=== PATIENT | female | born 1970 | race Caucasian/White ===

== ENCOUNTER 2018-10-15 03:51 | Inpatient (IN) ==
[2018-10-15] MEDS ORDERED: Acetaminophen 325 MG Tablet PO PRN (05:35)
[2018-10-15] MEDS ORDERED: Aluminum/Magnesium/Simethacone Susp 30 ML UDC PO PRN (05:35)
[2018-10-15] MEDS ORDERED: LORazepam 1 MG Tablet PO PRN (05:35)
--- NOTE | 2018-10-15 16:09 | P.HPPSY ---
Provisional Diagnosis Admission Date: October 15, 2018 04:42 Eva I.: Psychotic disorder brief Competence Certification of Person's Competence To Provide Express and Informed Consent I have personally examined Gretta Power, a person being served at [facility] on, October 15, 2018 1600. Express and informed consent means consent voluntarily given in writing, by a competent person, after sufficient explanation and disclosure of the subject matter involved to enable the person to make a knowing and willful decision without any element of force, fraud, deceit, duress, or other form of constraint or coercion. This person is 18 years of age or older, is not now known to be incompetent to consent to treatment with a guardian advocate, and does not have a health care surrogate or proxy currently making medical treatment decisions. I have found this person to be one of the following: [] Competent to provide express and informed consent, as defined above, for voluntary admission to this facility and is competent to provide express and informed consent for treatment. He/she has the consistent capacity to make well reasoned, willful, and knowing decisions concerning his or her medical or mental health treatment. The person fully and consistently understands the purpose of the admission for examination/placement and is fully capable of personally exercising all rights assured under [place]xxx] Incompetent to provide express and informed consent to voluntary admission , and this is incompetent to provide express and informed consent to treatment. The person must be transferred to involuntary status and a petition for a guardian advocate filed with the Circuit Court. [] Refusing to provide express and informed consent to voluntary admission but is competent to provide express and informed consent for treatment. The person must be discharged or transferred to involuntary status. Form shall be completed within 24 hours of a person's arrival at the receiving facility and filed in the clinical record of each person: 1. Admitted on a voluntary basis 2. Permitted to provide express and informed consent to his/her own treatment 3. Allowed to transfer from involuntary to voluntary status 4. Prior to permitting a person to consent to his or her own treatment after having been previously found incompetent to consent to treatment. History of Present Illness Capacity: Lacks capacity History of Present Illness: Patient is a 48-year-old white female who comes to under Jordan act Sieben illegible signature from [facility] dated 10/14/2018 and 9 PM stating auditory hallucinations manic behavior history of drug use. Patient is history in the emergency department urine tox positive for benzodiazepines and marijuana. It appears patient may have had a UTI diagnosed and is treated with Rocephin we will recheck her urine here patient transported here after being medically cleared. Patient seen in the exam room with nurse Dee Dee patient's ex- whom she is living with and her 23-year-old son. Patient acknowledges auditory hallucinations of a command nature patient is showing marked significant thought blocking significantly delayed responses very distracted responses are very brief and whispered. She is is able to acknowledge that the voices are of a command nature telling her not to respond to me. She is vague about suicidality she is vague about homicidality. There is a vague history of past mental health issues a number of years ago though she denies any prior inpatient psychiatric hospitalization. It appears there is been some history of alcohol abuse in the past and perhaps some experimentation with drugs including cocaine and possibly methamphetamine. Patient is vague about any prior physical or sexual abuse. She denies mental health issues with her family of origin. The. She has a college degree. I am not certain about her work history. At this time patient meets criteria for involuntary psychiatric hospitalization of the Jordan act on the first opinion request second opinion. A few she does not have capacity thus I will ask for healthcare surrogate and guardian advocate. Patient's son is willing to be a healthcare surrogate. We will start patient on Lexapro 10 mg daily and Risperdal 0.5 mg twice daily. Health has been fairly short stay. - Inpatient Certification I certify that the inpatient services were ordered in accordance with Medicare regulations governing the order. This includes certification that hospital inpatient services are reasonable and necessary and in the case of services not specified as inpatient-only under 42 CFR 419.22(n), that they are appropriately provided as inpatient services in accordance to with the 2-midnight benchmark under 43 CFR 412.3(e) I certify that inpatient psychiatric hospital services are medically necessary. Evaluation and treatment and/or diagnostic testing are expected to improve the patient's condition. The patient needs on a daily basis, active treatment furnished directly by or requiring the supervision of inpatient psychiatric facility personnel. Estimated Total Length of Stay (Days): 5 Plans for Post Hospital Care: Home Review of Systems All other systems reviewed negative except as stated in HPI PMFSH - History History Provided By: Family Member - Social History I have reviewed the patient's Social History: Yes - Substance Use History Substance History: Active Abuse - Substance Use Type Alcohol Status: Early Remission Route Used: By Mouth Frequency: Daily, few drinks Last Used: 3-4 weeks ago Reason for Use: Peer Pressure Comment: Per patien's son patient used alcohol daily since she was in college, he was unsure of the amount and she recently had ceased using ETOH and had DT' s a few weeks ago. Patient may have used synthetics per son. Quality Measures - Psychiatric History Psychological trauma history: Patient denies at this time she seems somewhat dubious about her recent Violence risk to others in the last 6 months: Low to moderate Violence risk to self in the last 6 months: Low to moderate - Substance Abuse History Drug or alcohol use in the past 12 months: Some history of alcohol and marijuana cocaine and amphetamine - Patient Strengths Patient's strengths (minimum of 2): Patient has supportive family and she is cooperative Medications and Allergies Active Medications: Active Medications Acetaminophen (Tylenol) 650 mg PO Q4H PRN PRN Reason: Pain 1-5 or Temp >101F Al Hydrox/Mg Hydrox/Simethicone (Mag-Al Plus Susp Liq) 30 ml PO Q6H PRN PRN Reason: DYSPEPSIA Al Hydroxide/Mg Hydroxide (Milk Of Magnesia Liq) 30 ml PO Q12H PRN PRN Reason: MILD CONSTIPATION Al Hydroxide/Mg Hydroxide (Milk Of Magnesia Liq) 30 ml PO DAILY PRN PRN Reason: CONSTIPATION Diphenhydramine HCl (Benadryl) 50 mg PO HS PRN PRN Reason: INSOMNIA Escitalopram Oxalate (Lexapro) 10 mg PO DAILY [facility] Hydroxyzine HCl (Atarax) 50 mg PO Q6H PRN PRN Reason: ANXIETY Nicotine (Habitrol 21 Mg Patch.24 Hr) 1 patch T-DERMAL DAILY [facility] Last Admin: 10/15/18 09:01 Dose: Not Given Patch Removal (Remove Old Patch) 1 each T-DERMAL HS [facility] Risperidone (Risperdal) 0.5 mg PO BID [facility] Allergies Allergy/AdvReac Type Severity Reaction Status Date / Time No Known Allergies Allergy Verified 10/15/18 05:13 Exam Vital signs: Vital Signs 10/15/18 04:40 Temperature 97.1 F L Pulse Rate 64 Blood Pressure 139/74 Intake & Output 10/14/18 10/15/18 10/15/18 18:59 06:59 18:59 Weight 66.1 kg Other: Weight On Admission 66.1 kg Narrative: Patient sitting quietly in the exam room she is in no acute distress, patient no respiratory distress, no complaints of chest pain or abdominal pain. Patient moving all 4 extremities without difficulty Mental Status Examination Appearance: Disheveled Consciousness: Alert, Clouded Orientation: Person, Place, Date/Time Motor Activity: Normal gait, Other (Somewhat slow pace) Speech: Hesitant, Slow Language: Adequate Fund of Knowledge: Inadequate Attention and Concentration: Adequate (Poor) Memory: Unremarkable (Poor) Mood: Sad Affect: Other (Marked decreased range and intensity) Thought Process & Associations: Linear Thought Content: Hallucinations Hallucination Type: Auditory Delusion Type: None Suicidal Ideation: Yes (Vague) Suicidal Plan: Yes (Denies) Suicidal Intention: Yes (The) Homicidal Ideation: No Homicidal Plan: No Homicidal Intention: No Insight: Poor Judgment: Poor Assessment and Plan - Assessment (1) Brief psychotic disorder Code(s): F23 - Brief psychotic disorder Status: Acute - Plan Plan: Estimated LOS: [] days At this time patient meets criteria for further involuntary psychiatric hospitalization of the Jordan act older first opinion request second opinion, I feel she does not have capacity will ask healthcare surrogate and guardian advocate we will start patient on Lexapro and Risperdal patient's son to be his healthcare surrogate Justification for Continued Inpatient Stay: At this time patient with decompensated placed in a lower level of care Discharge Planning: Probable return home with family Request Healthcare Surrogate/Guardian Advocate?: Yes
[2018-10-15] MEDS: Escitalopram 10 MG Tablet PO SCH (16:49)
[2018-10-16] MEDS: Escitalopram 10 MG Tablet PO SCH (08:28)
[2018-10-16 08:46] LABS: Baso % (Auto) 0.7 % (0.0-2.0); Eos # (Auto) 0.1 th/mm3 (0.0-0.4); Eos % (Auto) 1.6 % (0.0-4.0); Hematocrit 36.5 % (35.0-46.0); Lymph # (Auto) 1.1 th/mm3 (1.0-4.8); Lymph % (Auto) 21.8 % (9.0-44.0); Mean Corpuscular HGB Conc 32.8 % (32.0-36.0); Mean Corpuscular Volume 88.4 fL (80.0-100.0); Mean Platelet Volume 8.9 fL (7.0-11.0); Mono # (Auto) 0.6 th/mm3 (0.0-0.9); Mono % (Auto) 11.1 % (0.0-8.0); Neut # (Auto) 3.3 th/mm3 (1.8-7.7); Neut % (Auto) 64.8 % (16.0-70.0); Platelet Count 199 th/mm3 (150-450); Red Blood Count 4.13 mil/mm3 (4.00-5.30); Red Cell Distribution Width 15.7 % (11.6-17.2)
[2018-10-16 09:17] LABS: Calcium 8.7 mg/dL (8.5-10.1); Carbon Dioxide 26.9 meq/L (21.0-32.0); Potassium 3.7 meq/L (3.5-5.1)
--- NOTE | 2018-10-16 11:50 | P.CONIM ---
History of Present Illness Service: Hospitalist Consult date: 10/16/18 Requesting Physician: Danny Dolan Reason for Consult: Assist with medical management Primary Care Provider: UNKNOWN History of Present Illness: This is a 48-year-old female with a past medical history significant for polysubstance abuse including alcohol, benzodiazepines and marijuana with questionable cocaine and methamphetamine use who was admitted to [facility] inpatient psychiatric unit under Jordan act from [facility]. Hospitalist services have been consulted to assist with medical management specifically treatment of possible urinary tract infection. At the previous facility patient had a urinalysis completed on 10/14/2018 which was significant for 2+ leukocytes, 4 white blood cells, moderate oxalate crystals with culture indicated. Patient was treated with IV Rocephin. Patient seen and examined. She is not a good historian. Patient appears distracted and perhaps internally preoccupied. She says she has intermittent "sensations" that run up one side of her body and make her "lock up ". She does not provide more specifics despite questioning. Per review of medical records, patient was daily alcohol user but quit a few weeks ago and went thru DTs. She denies any complaints of fever or chills. She denies any chest pain or shortness of breath. She denies any nausea or vomiting. She states she has intermittent left-sided abdominal pain for the past several months but she is unable to give any specifics. She denies any dysuria or hematuria. She denies any current constipation or diarrhea. She states she used to have issues with diarrhea and dark black stools but that resolved when she quit drinking daily alcohol about a month ago. UA has been ordered by the primary team but is not been completed. Patient's CBC and CMP are unremarkable. Review of Systems Review of Systems: all other systems reviewed are negative PMFSH Medical History Medical History Alcohol abuse (Acute) Polysubstance abuse (Acute) Surgical History Surgical History History of dilation and curettage (Acute) Social History Social History Substance History: Active Abuse Substance Abuse Detail Alcohol: Substance Use Status: Early Remission Route Used Substance Abuse: By Mouth Substance Frequency: Daily, few drinks Last Used: 3-4 weeks ago Substance Abuse Comment: Per patien's son patient used alcohol daily since she was in college, he was unsure of the amount and she recently had ceased using ETOH and had DT's a few weeks ago. Patient may have used synthetics per son. Reason for Use: Peer Pressure Medications and Allergies Allergies Allergy/AdvReac Type Severity Reaction Status Date / Time No Known Allergies Allergy Verified 10/15/18 05:13 Active Medications: Active Medications Acetaminophen (Tylenol) 650 mg PO Q4H PRN PRN Reason: Pain 1-5 or Temp >101F Al Hydrox/Mg Hydrox/Simethicone (Mag-Al Plus Susp Liq) 30 ml PO Q6H PRN PRN Reason: DYSPEPSIA Al Hydroxide/Mg Hydroxide (Milk Of Magnesia Liq) 30 ml PO Q12H PRN PRN Reason: MILD CONSTIPATION Diphenhydramine HCl (Benadryl) 50 mg PO HS PRN PRN Reason: INSOMNIA Escitalopram Oxalate (Lexapro) 10 mg PO DAILY [facility] Last Admin: 10/16/18 08:28 Dose: 10 mg Hydroxyzine HCl (Atarax) 50 mg PO Q6H PRN PRN Reason: ANXIETY Last Admin: 10/15/18 22:39 Dose: 50 mg Nicotine (Habitrol 21 Mg Patch.24 Hr) 1 patch T-DERMAL DAILY [facility] Last Admin: 10/16/18 08:34 Dose: Not Given Patch Removal (Remove Old Patch) 1 each T-DERMAL HS [facility] Last Admin: 10/15/18 22:05 Dose: Not Given Risperidone (Risperdal) 0.5 mg PO BID [facility] Last Admin: 10/16/18 08:28 Dose: 0.5 mg Physical Exam Vital signs: Last Vital Signs Temp 98.6 F 10/16/18 06:00 Pulse 90 10/16/18 06:00 Resp 18 10/16/18 06:00 BP 126/71 10/16/18 06:00 Pulse Ox 96 10/16/18 06:00 Intake & Output 10/14/18 10/15/18 10/16/18 10/17/18 06:59 06:59 06:59 06:59 Weight 66.1 kg Narrative: GENERAL: WDWN middle aged female patient, appears unkempt/ disheveled. INAD. Awake and alert. Distracted. SKIN: Warm and dry. No obvious rash. +small cut on lower lip, does not appear infected. HEAD: Atraumatic. Normocephalic. EYES: Pupils equal and round. No scleral icterus. No injection or drainage. ENT: No nasal bleeding or discharge. Mucous membranes pink and moist. NECK: Trachea midline. CARDIOVASCULAR: Regular rate and rhythm. No murmur auscultated. RESPIRATORY: No accessory muscle use. Clear to auscultation. Breath sounds equal bilaterally. GASTROINTESTINAL: Abdomen soft, non-tender, nondistended. +BS. MUSCULOSKELETAL: Extremities without clubbing, cyanosis, or edema. No obvious deformities. NEUROLOGICAL: Awake and alert. No obvious cranial nerve deficits. Motor grossly within normal limits. Able to move all extremities spontaneously. Slow vague responses. PSYCHIATRIC: Flat affect. Distracted. Insight and judgement poor. Results Labs CBC & Chem 7: 10/16/18 07:35 10/16/18 07:35 Assessment and Plan (1) Brief psychotic disorder: Code(s): F23 - Brief psychotic disorder Status: Acute Plan 28-year-old female with a past medical history of polysubstance abuse including alcohol, benzodiazepines and marijuana admitted to inpatient psychiatric unit with acute psychosis. Hospitalist service is consulted to assist with medical management. Acute psychosis, likely due to polysubstance use/abuse Polysubstance abuse Hx of alcohol abuse UDS + benzodiazepines and marijuana TSH 5.620 -Management per psychiatric team -seizure precautions -obtain RPR, B12 and Thiamine level -check CT head UTI Reviewed urinalysis from outside facility 10/14/18 + leukocytes, 4 white blood cells, moderate oxalate crystals, culture indicated patient treated with IV Ceftriaxone -repeat UA ordered/pending -start on po Cipro 500mg BID for now pending repeat UA results Episodes of "sensation on one side of her body and locking up" concern for seizure activity -obtain EEG -monitor for seizure activity Intermittent abdominal pain patient denies any complaints of abdominal pain at this time. Suspect related to alcohol abuse -CMP unremarkable -order Beta HCG -monitor DVT prophylaxis -patient is ambulatory Thank you for this consultation. We will follow patient along with you.
--- NOTE | 2018-10-16 13:06 | P.CONPSY ---
Provisional Diagnosis Admission Date: October 15, 2018 04:42 Rugby I.: Psychotic disorder brief History of Present Illness Service: Psychiatry Consult date: 10/16/18 Requesting Physician: Danny Dolan Reason for Consult: 2nd Opinion Primary Care Provider: UNKNOWN History of Present Illness: Pt seen and discussed with staff. Chart reviewed. Pt was admitted under a BA due to AH and psychotic behavior. Tox screen positive for benzos. Hx of cocaine and methamphetamine abuse. She ahs been thought blocking and responding to internal stimuli. She is paranoid about medications and suspicious of nursing staff. She has been selectively mute and refusing to communicate with staff at times. Appetite has been poor but staff have been able to coax her to eat some of meals. Thought process is notable for loose associations. No aggression or agitation. PMFSH - History History Provided By: Family Member - Medical History Medical History: Medical History (Last Reviewed 10/16/18 @ 18:55 by Anai Castillo MD) Alcohol abuse Polysubstance abuse - Surgical History Surgical History: Surgical History (Last Reviewed 10/16/18 @ 18:55 by Anai Castillo MD) History of dilation and curettage - Substance Use History Substance History: Active Abuse - Substance Use Type Alcohol Status: Early Remission Route Used: By Mouth Frequency: Daily, few drinks Last Used: 3-4 weeks ago Reason for Use: Peer Pressure Comment: Per patien's son patient used alcohol daily since she was in college, he was unsure of the amount and she recently had ceased using ETOH and had DT' s a few weeks ago. Patient may have used synthetics per son. Medications and Allergies Active Medications: Active Medications Acetaminophen (Tylenol) 650 mg PO Q4H PRN PRN Reason: Pain 1-5 or Temp >101F Al Hydrox/Mg Hydrox/Simethicone (Mag-Al Plus Susp Liq) 30 ml PO Q6H PRN PRN Reason: DYSPEPSIA Al Hydroxide/Mg Hydroxide (Milk Of Magnesia Liq) 30 ml PO Q12H PRN PRN Reason: MILD CONSTIPATION Ciprofloxacin HCl (Cipro) 500 mg PO Q12H [facility] Diphenhydramine HCl (Benadryl) 50 mg PO HS PRN PRN Reason: INSOMNIA Escitalopram Oxalate (Lexapro) 10 mg PO DAILY [facility] Last Admin: 10/16/18 08:28 Dose: 10 mg Hydroxyzine HCl (Atarax) 50 mg PO Q6H PRN PRN Reason: ANXIETY Last Admin: 10/15/18 22:39 Dose: 50 mg Nicotine (Habitrol 21 Mg Patch.24 Hr) 1 patch T-DERMAL DAILY [facility] Last Admin: 10/16/18 08:34 Dose: Not Given Patch Removal (Remove Old Patch) 1 each T-DERMAL HS [facility] Last Admin: 10/15/18 22:05 Dose: Not Given Risperidone (Risperdal) 0.5 mg PO BID [facility] Last Admin: 10/16/18 08:28 Dose: 0.5 mg Allergies Allergy/AdvReac Type Severity Reaction Status Date / Time No Known Allergies Allergy Verified 10/15/18 05:13 Exam Vital signs: Vital Signs 10/16/18 06:00 Temperature 98.6 F Pulse Rate 90 Respiratory Rate 18 Blood Pressure 126/71 Pulse Oximetry 96 Mental Status Examination Appearance: Disheveled Consciousness: Alert, Clouded Orientation: Person, Place, Date/Time Motor Activity: Normal gait, Other (Somewhat slow pace) Speech: Hesitant, Slow Language: Adequate Fund of Knowledge: Inadequate Attention and Concentration: Easily distracted Memory: Impaired Mood: Sad Affect: Blunt Thought Process & Associations: Disorganized Thought Content: Bizarre thinking, Hallucinations Hallucination Type: Auditory Delusion Type: Bizarre, Paranoid Suicidal Ideation: Yes (Vague) Suicidal Plan: No (Denies) Suicidal Intention: No Homicidal Ideation: No Homicidal Plan: No Homicidal Intention: No Insight: Poor Judgment: Poor Assessment and Plan - Assessment (1) Brief psychotic disorder Code(s): F23 - Brief psychotic disorder Status: Acute - Plan Plan: Estimated LOS: [] days Pt meets criteria for involuntary hospitalization. 2nd opinion completed. Ordered CIWA due to hx of benzo abuse. Justification for Continued Inpatient Stay: psychosis Request Healthcare Surrogate/Guardian Advocate?: Yes
[2018-10-16] MEDS: Ciprofloxacin 500 MG Tablet PO SCH (13:07)
[2018-10-16 14:23] LABS: Vitamin B12 328 pg/mL (193-986)
[2018-10-16] MEDS ORDERED: LORazepam 1 MG Tablet PO PRN (19:03)
--- NOTE | 2018-10-16 21:10 | CT ---
EXAM DATE: 10/16/2018 8:39 PM EST AGE/SEX: 48 years / Female INDICATIONS: Altered mental status. CLINICAL DATA: This is the patient's initial encounter. Patient reports that signs and symptoms have been present for 1 day and indicates a pain score of Nonresponsive. MEDICAL/SURGICAL HISTORY: None. None. RADIATION DOSE: 34.62 CTDI (mGy) COMPARISON: No prior exams available for comparison. TECHNIQUE: CT of the head without contrast. Using automated exposure control and adjustment of the mA and/or kV according to patient size, radiation dose was kept as low as reasonably achievable to ob tain optimal diagnostic quality images. DICOM format image data is available electronically for revi ew and comparison. FINDINGS: Cerebrum: The ventricles are normal. No midline shift, mass lesion, hemorrhage or acute infarction. No extraaxial fluid collections are seen. Posterior Fossa: The cerebellum and brainstem demonstrate no acute abnormality. The 4th ventricle is midline. The cerebellopontine angle is within normal limits. Extracranial: The visualized sinuses are clear. Skull: The calvaria is intact. No skull fracture. CONCLUSION: No acute intracranial abnormality is identified. . Electronically signed by: Danny Sherwood MD 10/16/2018 9:09 PM EST
[2018-10-17] MEDS: Ciprofloxacin 500 MG Tablet PO SCH ×3 (00:46→12:16)
[2018-10-17] MEDS: Escitalopram 10 MG Tablet PO SCH (08:15)
--- NOTE | 2018-10-17 12:14 | P.PNPSY ---
Subjective Remarks: Patient seen and mckeon with nurse Dee Dee, chart reviewed, patient showing mixed complaints medication. Patient also continues confused disorganized with significant thought blocking distractibility. She refused a thiamine injection today and also refused EEG I discussed this with her also supporting her position for her cooperation stating her son and ex- are supporters of her cooperating with us. She agreed to it. We will hopefully she will now cooperate. Review of Systems All other systems reviewed negative except as stated in HPI Mental Status Examination Appearance: Appropriate Consciousness: Alert, Highly distractible Orientation: Person, Place, Date/Time Motor Activity: Normal gait Speech: Hesitant, Slow Language: Adequate Fund of Knowledge: Inadequate Attention and Concentration: Easily distracted Memory: Impaired Mood: Sad Affect: Other (Slight decreased range and intensity) Thought Process & Associations: Disorganized Thought Content: Bizarre thinking, Hallucinations Hallucination Type: Auditory Delusion Type: Bizarre, Paranoid Suicidal Ideation: Yes (Vague) Suicidal Plan: No (Denies) Suicidal Intention: No Homicidal Ideation: No Homicidal Plan: No Homicidal Intention: No Insight: Poor Judgment: Poor Assessment and Plan - Assessment (1) Brief psychotic disorder Code(s): F23 - Brief psychotic disorder Status: Acute - Plan Plan: Patient remains psychotic and somewhat depressed. Showing reluctance to cooperate with medication treatment and procedures. Continue to work with patient's family related to this with the son being the healthcare surrogate Justification for Continued Inpatient Stay: At this time patient with decompensated placed on a lower level of care Discharge Planning: Hopefully to return home Request Healthcare Surrogate/Guardian Advocate?: Yes
--- NOTE | 2018-10-17 13:23 | P.PNIM ---
Subjective Interval history: Follow up on patient with acute psychosis. Patient seen and examined. Patient remains very guarded, paranoid. RN unable to collect UA secondary to patients paranoia. Patient says she did not sleep well. She does not voice and acute medical complaints or concerns at this time. DW RN, no adverse events noted last night. Physical Exam Vital signs: Last Vital Signs Temp 97.7 F 10/17/18 06:00 Pulse 84 10/17/18 06:00 Resp 16 10/17/18 06:00 BP 124/65 10/17/18 06:00 Pulse Ox 100 10/17/18 06:00 Intake & Output 10/15/18 10/16/18 10/17/18 10/18/18 06:59 06:59 06:59 06:59 Weight 66.1 kg 66.8 kg Narrative: GENERAL: WDWN middle aged female patient, appears unkempt/ disheveled. Awake and alert. Paranoid appearing. Thought blocking. INAD. SKIN: Warm and dry. No obvious rash. +small cut on lower lip, does not appear infected. HEENT: Atraumatic. Normocephalic. Pupils equal and round. No scleral icterus. No injection or drainage. No nasal bleeding or discharge. Mucous membranes pink and moist. NECK: Trachea midline. CARDIOVASCULAR: Regular rate and rhythm. No murmur auscultated. RESPIRATORY: No accessory muscle use. Clear to auscultation. Breath sounds equal bilaterally. GASTROINTESTINAL: Abdomen soft, non-tender, nondistended. +BS. MUSCULOSKELETAL: Extremities without clubbing, cyanosis, or edema. No obvious deformities. NEUROLOGICAL: Awake and alert. No obvious cranial nerve deficits. Motor grossly within normal limits. Able to move all extremities spontaneously. Slow vague responses. PSYCHIATRIC: Flat affect. Paranoid. Insight and judgement poor. Results Labs CBC & Chem 7: 10/16/18 07:35 10/16/18 07:35 Imaging Imaging: Impressions Head CT 10/16/18 00:00 CONCLUSION: No acute intracranial abnormality is identified. . Assessment and Plan (1) Brief psychotic disorder: Code(s): F23 - Brief psychotic disorder Status: Acute Plan 28-year-old female with a past medical history of polysubstance abuse including alcohol, benzodiazepines and marijuana admitted to inpatient psychiatric unit with acute psychosis. Hospitalist service is consulted to assist with medical management. Acute psychosis, likely due to polysubstance use/abuse Polysubstance abuse Hx of alcohol abuse UDS + benzodiazepines and marijuana Head CT shows no acute intracranial abnormality TSH 5.620 RPR nonreactive Thiamine level pending -Management per psychiatric team -seizure precautions UTI Reviewed urinalysis from outside facility 10/14/18 + leukocytes, 4 white blood cells, moderate oxalate crystals, culture indicated patient treated with IV Ceftriaxone -repeat UA ordered - RN unable to collect urine specimen secondary to patients paranoia -started on po Cipro x 3 days Episodes of "sensation on one side of her body and locking up" concern for seizure activity -obtain EEG - patient refused study -check thiamine level/pending -monitor for seizure activity Intermittent abdominal pain patient denies any complaints of abdominal pain at this time. Suspect related to alcohol abuse -CMP unremarkable -Beta HCG less than 1 -monitor Vitamin B12 deficiency B12 low normal at 328 -given 1000mcg B12 IM x 1 -continue on B12 supplementation daily DVT prophylaxis -patient is ambulatory Will follow up on thiamine level results. Patient appears stable from hospitalist standpoint. [facility] will sign off. Please reconsult if needed.
[2018-10-18] MEDS: Ciprofloxacin 500 MG Tablet PO SCH ×2 (00:54→12:46)
[2018-10-18 06:01] LABS: Bilirubin,Urine Negative (Negative); Clarity,Urine Hazy (Clear); Color,Urine Yellow (Yellw/Straw); Glucose,Urine (UA) Negative (Negative); Leukocyte Esterase,Urine Negative (Negative); Mucus,Urine Many /lpf (Occasional); Nitrite,Urine Negative (Negative); Specific Gravity,Urine 1.016 (1.002-1.035); Squamous Epithelial Cell,Urine 8 /hpf (0-5)
[2018-10-18] MEDS: Escitalopram 10 MG Tablet PO SCH (08:26)
--- NOTE | 2018-10-18 11:59 | P.TTN ---
- Patient Problems Problems: 1. Discharge planning 2. Medication compliance 3. Knowledge deficit 4. Lack of coping skills - Progress Toward Goals Provider Present: Dr. Samantha Dolan Provider Input: 10/17/2018; per psychiatrist he will decide medication adjustments or change after staffing with RN and reviewing weekend Nurse(s) Present: RN Nurse Input: 10/17/2018; Per RN patient is very psychotic, delusional and paranoid, requires coaching and prompting with daily actives and medications. Psychiatric Counselors Present: Jhonny Bernardo Jr., [facility], Johanna Hopkins, [facility] Psychiatric Therapist Input: 10/17/2018; assign counselor will work with treatment team and patient with appropriate dc placement when patient is stable. Group Spec/RT/OT/HARMON Present: EDEN Ryan Group Spec/RT/OT/HARMON Input: 10/17/2018; patient lacks insight to participate with activities - Documentation Teaching Recipient: Patient
--- NOTE | 2018-10-18 12:43 | P.PNPSY ---
Subjective Remarks: Patient is seen in day room with nurse Dee Dee, chart reviewed, discussed patient with nurse. Nurse states patient quite reluctant but compliant with medications. She feels patient is attempting to cheek the medications. We will change the Resporal from tab to M tab. Patient somewhat calmer today appears slightly more focused her speech is becoming somewhat more goal oriented. Nurses note describing her conversations with patient's father noted and appreciated. For now continue treatment with medication adjustment as mentioned above Review of Systems All other systems reviewed negative except as stated in HPI Mental Status Examination Appearance: Appropriate Consciousness: Alert, Highly distractible (Somewhat improved) Orientation: Person, Place, Date/Time Motor Activity: Normal gait Speech: Hesitant (Slightly improved), Slow (Slightly improved) Language: Adequate Fund of Knowledge: Inadequate Attention and Concentration: Easily distracted (Slightly improved) Memory: Impaired Mood: Sad Affect: Other (Slight decreased range and intensity) Thought Process & Associations: Disorganized Thought Content: Bizarre thinking (Slightly improved), Hallucinations (Slightly improved) Hallucination Type: Auditory (Persistent but softer) Delusion Type: Bizarre, Paranoid Suicidal Ideation: Yes (Denies today) Suicidal Plan: No (Denies) Suicidal Intention: No Homicidal Ideation: No Homicidal Plan: No Homicidal Intention: No Insight: Poor Judgment: Poor Assessment and Plan - Assessment (1) Brief psychotic disorder Code(s): F23 - Brief psychotic disorder Status: Acute - Plan Plan: Patient remains psychotic delusional though somewhat improved. There is the question of patient compliant medication will change the rispetrdal to M-Tab Justification for Continued Inpatient Stay: At this time patient would decompensate if placed in a lower level of care Discharge Planning: Hopefully return home with family Request Healthcare Surrogate/Guardian Advocate?: Yes
--- NOTE | 2018-10-18 17:49 | P.PN ---
Subjective Interval history: Reconsult for poss seizure seeing during EEG: per RN report, semiconductor manufacturing technician noted pt. with "word salad" and left arm twitch, EEG showed epileptiform spikes left hemisphere. Lasted about 30 seconds. Pt. now seen and examined with RN. Pt. awakes to voice, oriented x 3 and following commands, cooperative with examination. Denies prior hx of seizures. States that she was somewhat aware of what was happening but had difficulty communicating to the tech. Per RN, pt. was initially nonverbal during first days of admissions, and noted with involuntary movement of left arm. Pt. states hx of cocaine and marihuana use 1 month ago, last ETOH a couple of weeks ago. No family hx of epilepsy. Denies any headaches, no double vision, no paresthesias. Today pt. has been more cooperative and taking medications. Physical Exam Vital signs: Vital Signs 10/18/18 05:55 Temperature 97.1 F L Pulse Rate 86 Respiratory Rate 17 Blood Pressure 126/63 Pulse Oximetry 95 Narrative: GENERAL: WDWN middle aged female patient, sleeping awakes to voice, NAD. Calm. SKIN: Warm and dry. No obvious rash. +small cut on lower lip, does not appear infected. HEENT: Atraumatic. Normocephalic. Pupils equal and round. No scleral icterus. No injection or drainage. No nasal bleeding or discharge. Mucous membranes pink and moist. NECK: Trachea midline. CARDIOVASCULAR: Regular rate and rhythm. No murmur auscultated. RESPIRATORY: No accessory muscle use. Clear to auscultation. Breath sounds equal bilaterally. GASTROINTESTINAL: Abdomen soft, non-tender, nondistended. +BS. MUSCULOSKELETAL: Extremities without clubbing, cyanosis, or edema. No obvious deformities. NEUROLOGICAL: Awakes to voice, oriented x 3. Following commands, no focal deficits. Speech clear. Motor grossly within normal limits. Able to move all extremities spontaneously. PSYCHIATRIC: Flat affect, cooperative. Results - Labs CBC & Chem 7: 10/16/18 07:35 10/16/18 07:35 Laboratory Results - last 24 hr 10/18/18 05:45 Urine Color Yellow Urine Clarity Hazy H Urine pH 5.0 Ur Specific [place] 1.016 Urine Protein Negative Urine Glucose (UA) Negative Urine Ketones Trace H Urine Occult Blood Negative Urine Nitrate Negative Urine Bilirubin Negative Urine Urobilinogen Less than 2 Ur Leukocyte Esterase Negative Urine RBC 8 H Urine WBC 3 Ur Squamous Epith Cells 8 Urine Mucus Many H Micro UA Comment Culture not ind Ur Microscopic Review Not Reportable Urine Culture Comments Culture not ind Assessment and Plan - Assessment (1) Brief psychotic disorder Code(s): F23 - Brief psychotic disorder Status: Acute - Plan 28-year-old female with a past medical history of polysubstance abuse including alcohol, benzodiazepines and marijuana admitted to inpatient psychiatric unit with acute psychosis. Hospitalist service is consulted to assist with medical management. Acute psychosis, likely due to polysubstance use/abuse Polysubstance abuse Hx of alcohol abuse UDS + benzodiazepines and marijuana Head CT shows no acute intracranial abnormality TSH 5.620 RPR nonreactive Thiamine level pending -Management per psychiatric team -seizure precautions UTI Reviewed urinalysis from outside facility 10/14/18 + leukocytes, 4 white blood cells, moderate oxalate crystals, culture indicated patient treated with IV Ceftriaxone -repeat UA ordered - RN unable to collect urine specimen secondary to patients paranoia -started on po Cipro x 3 days Episodes of "sensation on one side of her body and locking up" concern for seizure activity 10/18, reconsult for poss seizure noted during EEG. Pt. noted with "word salad" , involuntary movement of left arm. -EEG result pending -check thiamine level/pending -monitor for seizure activity -will wait for EEG report, may need to be started on Keppra. Intermittent abdominal pain patient denies any complaints of abdominal pain at this time. Suspect related to alcohol abuse -CMP unremarkable -Beta HCG less than 1 -monitor Vitamin B12 deficiency B12 low normal at 328 -given 1000mcg B12 IM x 1 -continue on B12 supplementation daily DVT prophylaxis -patient is ambulatory will follow up on formal EEG results, may need neurology consult. Code Status: Full code Discussed Condition With: RN, pt., Dr. Nielson Discharge Planning: Per psych team
--- NOTE | 2018-10-18 18:25 | MG ---
cc: Guzman Mirza MD EEG NUMBER: [id number] INDICATION: A 48-year-old woman some hallucinations, alcohol abuse. MEDICATIONS: 1. Lexapro. 2. Risperdal. 3. Atarax. FINDINGS: An 8 Hz, 60 microvolt symmetric posterior rhythm is seen. The recording overall is synchronous and symmetric. No hemisphere asymmetries are noted. No epileptiform or seizure activity is seen. Hyperventilation is performed without any change in the background. Photic stimulation is performed without any posterior driving. IMPRESSION: Normal awake electroencephalogram. No evidence for a focal or diffuse abnormality. ADDENDUM: The patient had an episode at epoch 92 that the tech noted. She opened her eyes, lifted her head up slightly, turned her head to the right. Right arm was extended out, patient talking like she was talking to someone who was not there, and then laid her head down and closed her eyes. There is some movement artifact with that. There certainly is some slowing over the left hemisphere, but I did not see any epileptiform or seizure activity and how much of this is movement artifact is unclear as there is a fair amount of movement within that. This lasted approximately 20 seconds and this is on a background of normal EEG activity. The tech thought maybe there was a temporal lobe seizure with that on the left, but I did not see any epileptiform activity, just some slowing activity which I thought was probably more movement; however, some 3-4 Hz slowing is apparent within the movement. If a temporal lobe seizure is thought likely, a repeat EEG could be performed. MD FRANKIE Kuo/parker , 06:04 PM , 06:08 PM
[2018-10-18] MEDS: risperiDONE 0.5 MG ODT PO SCH (20:24)
[2018-10-19] MEDS: Ciprofloxacin 500 MG Tablet PO SCH ×2 (00:13→13:00)
[2018-10-19] MEDS: risperiDONE 0.5 MG ODT PO SCH ×2 (10:22→21:09)
[2018-10-19] MEDS: Escitalopram 10 MG Tablet PO SCH (10:22)
--- NOTE | 2018-10-19 11:33 | P.PNPSY ---
Subjective Remarks: Patient is seen in her room with nurse Dee Dee, chart reviewed, it appears patient he had a could be a abnormal EEG yesterday afternoon the may have been some type of temporal lobe seizures noted. We will have a neurology consult to further assess this. Patient denies any prior seizure type issues. 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 She still is somewhat disorganized and confused. Though she is somewhat reluctantly compliant with medication. Patient is scheduled for TEAM INTERVAL tomorrow. Thus from now we will consult neurology continue medications no change. Patient also requests Chapstick for dry lips we will order such Review of Systems All other systems reviewed negative except as stated in HPI Mental Status Examination Appearance: Appropriate Consciousness: Alert, Highly distractible (Somewhat improved) Orientation: Person, Place, Date/Time Motor Activity: Normal gait Speech: Hesitant (Slightly improved), Slow (Slightly improved) Language: Adequate Fund of Knowledge: Inadequate Attention and Concentration: Easily distracted (Slightly improved) Memory: Impaired Mood: Sad, Oppositional (Minimal) Affect: Other (Slight decreased range and intensity) Thought Process & Associations: Disorganized Thought Content: Bizarre thinking (Slightly improved), Hallucinations (Slightly improved) Hallucination Type: Auditory (Persistent but softer) Delusion Type: Bizarre, Paranoid Suicidal Ideation: Yes (Denies today) Suicidal Plan: No (Denies) Suicidal Intention: No Homicidal Ideation: No Homicidal Plan: No Homicidal Intention: No Insight: Poor Judgment: Poor Assessment and Plan - Assessment (1) Brief psychotic disorder Code(s): F23 - Brief psychotic disorder Status: Acute - Plan Plan: Patient remains somewhat psychotic and delusional, though with the possibility of some type of a seizure disorder present we will have neurology consult with us. Patient is scheduled for TEAM INTERVAL tomorrow Justification for Continued Inpatient Stay: At this time patient with decompensated placed on a lower level of care Discharge Planning: Possible return home with family Request Healthcare Surrogate/Guardian Advocate?: Yes
--- NOTE | 2018-10-19 12:56 | P.PN ---
Subjective Interval history: Reconsult for poss seizure seeing during EEG: pt. seen and examined with RN. Per RN, she was observed having another "episode". Pt. became flushed, had difficulty speaking and had twitching of right arm. Pt. now states she has had these episodes since April but has not had any work up until now. Complains of occasional numbness down right arm, no headache, no double vision. Pt. remains oriented to self, situation. Confused about year and month, thought that it was 2018 and Janny/New Years had already passed. Discussed EEG findings, and need for further work up including brain MRI. States she is claustrophobic. Offered small dose of Ativan but she declines, states she needs more sedation. Physical Exam Vital signs: Vital Signs 10/18/18 18:36 10/19/18 05:28 Temperature 98.4 F 98.8 F Pulse Rate 74 68 Respiratory Rate 17 18 Blood Pressure 94/51 L 104/55 L Pulse Oximetry 98 Narrative: GENERAL: WDWN middle aged female patient, sleeping awakes to voice, NAD. Calm. SKIN: Warm and dry. No obvious rash. +small cut on lower lip, does not appear infected. HEENT: Atraumatic. Normocephalic. Pupils equal and round. No scleral icterus. No injection or drainage. No nasal bleeding or discharge. Mucous membranes pink and moist. NECK: Trachea midline. CARDIOVASCULAR: Regular rate and rhythm. No murmur auscultated. RESPIRATORY: No accessory muscle use. Clear to auscultation. Breath sounds equal bilaterally. GASTROINTESTINAL: Abdomen soft, non-tender, nondistended. +BS. MUSCULOSKELETAL: Extremities without clubbing, cyanosis, or edema. No obvious deformities. NEUROLOGICAL: Awake, oriented x 2 not year and month. Following commands, no focal deficits. Speech clear. Motor grossly within normal limits. Able to move all extremities spontaneously. PSYCHIATRIC: Flat affect, cooperative. Results - Labs CBC & Chem 7: 10/16/18 07:35 10/16/18 07:35 Laboratory Results - last 24 hr 10/16/18 14:07 Thiamine 63 L Assessment and Plan - Assessment (1) Brief psychotic disorder Code(s): F23 - Brief psychotic disorder Status: Acute - Plan 28-year-old female with a past medical history of polysubstance abuse including alcohol, benzodiazepines and marijuana admitted to inpatient psychiatric unit with acute psychosis. Hospitalist service is consulted to assist with medical management. Acute psychosis, likely due to polysubstance use/abuse Polysubstance abuse Hx of alcohol abuse UDS + benzodiazepines and marijuana Head CT shows no acute intracranial abnormality TSH 5.620 RPR nonreactive Thiamine level 63, will add Thiamine 100 mg PO BID -Management per psychiatric team -seizure precautions UTI Reviewed urinalysis from outside facility 10/14/18 + leukocytes, 4 white blood cells, moderate oxalate crystals, culture indicated patient treated with IV Ceftriaxone -repeat UA ordered - RN unable to collect urine specimen secondary to patients paranoia -started on po Cipro x 3 days Episodes of "sensation on one side of her body and locking up" concern for seizure activity 10/18, reconsult for poss seizure noted during EEG. Pt. noted with "word salad" , involuntary movement of left arm. 10/19, pt. had another episode today, this time became flushed, nonverbal, with involuntary movement of right arm. Lasted 30 seconds. -thiamine 63 -seizure precautions -EEG report initially read as normal however addendum was done. Slowing noted on left hemisphere but no epileptic activity. -Neurology consulted per psych team -MRI brain has been ordered, pt. reluctant to have due to claustrophobia. Offered Ativan but she declined. Intermittent abdominal pain patient denies any complaints of abdominal pain at this time. Suspect related to alcohol abuse -CMP unremarkable -Beta HCG less than 1 -monitor Vitamin B12 deficiency B12 low normal at 328 -given 1000mcg B12 IM x 1 -continue on B12 supplementation daily DVT prophylaxis -patient is ambulatory Will follow up on neurology recommendations. Code Status: Full code Discussed Condition With: RN, pt. Discharge Planning: Per psych team
[2018-10-19] MEDS ORDERED: [UNRECOGNIZED DRUG - OTHER] TOPICAL PRN (15:15)
[2018-10-20] MEDS: Ciprofloxacin 500 MG Tablet PO SCH ×2 (03:40→13:43)
[2018-10-20] MEDS: Escitalopram 10 MG Tablet PO SCH ×2 (08:10→20:46)
[2018-10-20] MEDS: risperiDONE 0.5 MG ODT PO SCH (08:10)
--- NOTE | 2018-10-20 12:26 | P.PNPSY ---
Subjective Remarks: Patient's case was presented and [place] [address] patient declined to attend though her son and ex- did come to the lobby. The case was continued for 1 week to allow further investigation of the neurological findings. Patient seen by me after [place] [address]. EEG results reviewed, hospitalist note reviewed, patient is seen and unit with nurse Neema. Patient is alert calm pleasant with me she is oriented to place time and situation. She is aware of the investigations going on. There is some anxiety related to doing her MRI. However I shared with her that I would be able to give her some inappropriate sedation, 2 mg Ativan p.o., that will help. Patient also is noting some sedation during the day with the medication thus I will consolidate the Resporal to 1 mg at at bedtime and change the Lexapro to 10 mg at at bedtime. We are awaiting neurology's full consultation Review of Systems All other systems reviewed negative except as stated in HPI Mental Status Examination Appearance: Appropriate Consciousness: Alert, Highly distractible (More focused) Orientation: Person, Place, Date/Time, Situation Motor Activity: Normal gait Speech: Hesitant (Improving), Slow (Improving) Language: Adequate Fund of Knowledge: Inadequate (Improving) Attention and Concentration: Easily distracted (Improving) Memory: Impaired Mood: Sad Affect: Other (Slight decreased range and intensity) Thought Process & Associations: Disorganized (Improving) Thought Content: Bizarre thinking (Improving), Hallucinations (Slightly improved ) Hallucination Type: Auditory (Persistent but softer) Delusion Type: Bizarre, Paranoid (Improving) Suicidal Ideation: Yes (Denies today) Suicidal Plan: No (Denies) Suicidal Intention: No Homicidal Ideation: No Homicidal Plan: No Homicidal Intention: No Insight: Poor Judgment: Poor Assessment and Plan - Assessment (1) Brief psychotic disorder Code(s): F23 - Brief psychotic disorder Status: Acute - Plan Plan: Patient psychosis is improving, the continued investigation of the seizure-like activities noted well during her EEG. She medication adjustments above. Hopefully will be able to get the MRI accomplished today Justification for Continued Inpatient Stay: At this time patient with decompensated placed on a lower level of care Discharge Planning: To be determined probably home with son and Request Healthcare Surrogate/Guardian Advocate?: Yes
--- NOTE | 2018-10-20 17:42 | P.PN ---
Subjective Interval history: Reconsult for poss seizure seeing during EEG: pt. seen and examined, awakes to voice, oriented x 3. Has been getting up to eat but going back to her room to sleep. Denies SI/HI. Wants to go home. States she had an episode where she could not speak, not sure how long lasted. Not observed by staff. C/O mild headache right frontal. No vision changes. No fever. Signed paper for MRI but afraid of doing it. Wants to hold off for now. Physical Exam Vital signs: Vital Signs 10/20/18 05:56 10/20/18 16:43 Temperature 97.8 F 98.7 F Pulse Rate 77 65 Respiratory Rate 16 18 Blood Pressure 127/66 114/63 Pulse Oximetry 99 97 Narrative: GENERAL: WDWN middle aged female patient, sleeping awakes to voice, NAD. Calm. SKIN: Warm and dry. No obvious rash. +small cut on lower lip, does not appear infected. HEENT: Atraumatic. Normocephalic. Pupils equal and round. No scleral icterus. No injection or drainage. No nasal bleeding or discharge. Mucous membranes pink and moist. NECK: Trachea midline. CARDIOVASCULAR: Regular rate and rhythm. No murmur auscultated. RESPIRATORY: No accessory muscle use. Clear to auscultation. Breath sounds equal bilaterally. GASTROINTESTINAL: Abdomen soft, non-tender, nondistended. +BS. MUSCULOSKELETAL: Extremities without clubbing, cyanosis, or edema. No obvious deformities. NEUROLOGICAL: Awake, oriented x 2 not year and month. Following commands, no focal deficits. Speech clear. Motor grossly within normal limits. Able to move all extremities spontaneously. PSYCHIATRIC: Flat affect, cooperative. Results - Labs CBC & Chem 7: 10/16/18 07:35 10/16/18 07:35 Assessment and Plan - Assessment (1) Brief psychotic disorder Code(s): F23 - Brief psychotic disorder Status: Acute - Plan 28-year-old female with a past medical history of polysubstance abuse including alcohol, benzodiazepines and marijuana admitted to inpatient psychiatric unit with acute psychosis. Hospitalist service is consulted to assist with medical management. Acute psychosis, likely due to polysubstance use/abuse Polysubstance abuse Hx of alcohol abuse UDS + benzodiazepines and marijuana Head CT shows no acute intracranial abnormality TSH 5.620 RPR nonreactive Thiamine level 63, will add Thiamine 100 mg PO BID -Management per psychiatric team -seizure precautions UTI Reviewed urinalysis from outside facility 10/14/18 + leukocytes, 4 white blood cells, moderate oxalate crystals, culture indicated patient treated with IV Ceftriaxone -repeat UA ordered - RN unable to collect urine specimen secondary to patients paranoia -started on po Cipro x 3 days Episodes of "sensation on one side of her body and locking up" concern for seizure activity 10/18, reconsult for poss seizure noted during EEG. Pt. noted with "word salad" , involuntary movement of left arm. 10/19, pt. had another episode today, this time became flushed, nonverbal, with involuntary movement of right arm. Lasted 30 seconds. 10/20, no episodes observed by staff. -thiamine 63 -seizure precautions -EEG report initially read as normal however addendum was done. Slowing noted on left hemisphere but no epileptic activity. -Reconsulted neurology, pending. -MRI brain has been ordered, pt. reluctant to have due to claustrophobia. Has Ativan ordered per psych -not inclined to start AED, defer to neuro Intermittent abdominal pain patient denies any complaints of abdominal pain at this time. Suspect related to alcohol abuse -CMP unremarkable -Beta HCG less than 1 -monitor Vitamin B12 deficiency B12 low normal at 328 -given 1000mcg B12 IM x 1 -continue on B12 supplementation daily DVT prophylaxis -patient is ambulatory Will f/u on neurology recommendations. Code Status: Full code Discussed Condition With: RN, pt. Discharge Planning: Per psych team
[2018-10-20] MEDS: risperiDONE 1 MG ODT PO SCH (20:47)
--- NOTE | 2018-10-20 22:23 | P.CONNS ---
History of Present Illness Primary Care Provider: [facility] - History History Provided By: Family Member - Medical History Medical History: Medical History (Last Reviewed 10/16/18 @ 18:55 by Anai Castillo MD) Alcohol abuse Polysubstance abuse - Surgical History Surgical History: Surgical History (Last Reviewed 10/16/18 @ 18:55 by Anai Castillo MD) History of dilation and curettage - Substance Use History Substance History: Active Abuse - Substance Use Type Alcohol Status: Early Remission Route Used: By Mouth Frequency: Daily, few drinks Last Used: 3-4 weeks ago Reason for Use: Peer Pressure Comment: Per patien's son patient used alcohol daily since she was in college, he was unsure of the amount and she recently had ceased using ETOH and had DT' s a few weeks ago. Patient may have used synthetics per son. Medications and Allergies Active Medications: Active Medications Acetaminophen (Tylenol) 650 mg PO Q4H PRN PRN Reason: Pain 1-5 or Temp >101F Al Hydrox/Mg Hydrox/Simethicone (Mag-Al Plus Susp Liq) 30 ml PO Q6H PRN PRN Reason: DYSPEPSIA Al Hydroxide/Mg Hydroxide (Milk Of Magnesia Liq) 30 ml PO Q12H PRN PRN Reason: MILD CONSTIPATION Ciprofloxacin HCl (Cipro) 500 mg PO Q12H [facility] Last Admin: 10/20/18 13:43 Dose: 500 mg Cyanocobalamin (Vitamin B12) 1,000 mcg PO DAILY [facility] Last Admin: 10/20/18 08:10 Dose: 1,000 mcg Diphenhydramine HCl (Benadryl) 50 mg PO HS PRN PRN Reason: INSOMNIA Last Admin: 10/19/18 21:09 Dose: 50 mg Escitalopram Oxalate (Lexapro) 10 mg PO HS [facility] Last Admin: 10/20/18 20:46 Dose: Not Given Hydroxyzine HCl (Atarax) 50 mg PO Q6H PRN PRN Reason: ANXIETY Last Admin: 10/19/18 21:09 Dose: 50 mg Lorazepam (Ativan) 1 mg PO Q4H PRN PRN Reason: ETHANOL WITHDRAWAL Nicotine (Habitrol 21 Mg Patch.24 Hr) 1 patch T-DERMAL DAILY [facility] Last Admin: 10/20/18 10:13 Dose: Not Given Nf:Chapstick(White (Petrolatum 45%)) 0 each TOPICAL UNSCH PRN PRN Reason: DRY MOUTH Patch Removal (Remove Old Patch) 1 each T-DERMAL HS [facility] Last Admin: 10/20/18 20:47 Dose: Not Given Risperidone (Risperdal M-Tab) 1 mg PO HS [facility] Last Admin: 10/20/18 20:47 Dose: Not Given Thiamine HCl (Vitamin B1) 100 mg PO BID [facility] Last Admin: 10/20/18 20:48 Dose: 100 mg Allergies Allergy/AdvReac Type Severity Reaction Status Date / Time No Known Allergies Allergy Verified 10/15/18 05:13 Exam Vital signs: Vital Signs 10/20/18 05:56 10/20/18 16:43 Temperature 97.8 F 98.7 F Pulse Rate 77 65 Respiratory Rate 16 18 Blood Pressure 127/66 114/63 Pulse Oximetry 99 97 Results - Laboratory Findings CBC and BMP: 10/16/18 07:35 10/16/18 07:35 Abnormal lab findings: Abnormal Labs 10/16/18 10/16/18 10/16/18 07:35 07:35 14:07 [place] % (Auto) 11.1 H Estimated GFR 86 L Thiamine 63 L Urine Clarity Urine Ketones Urine RBC Urine Mucus 10/18/18 05:45 [place] % (Auto) Estimated GFR Thiamine Urine Clarity Hazy H Urine Ketones Trace H Urine RBC 8 H Urine Mucus Many H
[2018-10-21] MEDS: Ciprofloxacin 500 MG Tablet PO SCH ×2 (01:06→12:53)
--- NOTE | 2018-10-21 11:36 | P.PNPSY ---
Subjective Remarks: Patient seen in her room with nurse Courtney, chart reviewed, patient showing compliance with medication. Continue to await neurology consult. Patient continues with slow responses slow she is focused somewhat guarded. She is vague about any persistent auditory hallucinations. For now continue treatment Review of Systems All other systems reviewed negative except as stated in HPI Mental Status Examination Appearance: Appropriate Consciousness: Alert, Highly distractible (More focused) Orientation: Person, Place, Date/Time, Situation Motor Activity: Normal gait Speech: Hesitant (Improving), Slow (Improving) Language: Adequate Fund of Knowledge: Inadequate (Improving) Attention and Concentration: Easily distracted (Improving) Memory: Impaired Mood: Sad Affect: Other (Slight decreased range and intensity) Thought Process & Associations: Disorganized (Improving) Thought Content: Bizarre thinking (Improving), Hallucinations (Slightly improved ) Hallucination Type: Auditory (Persistent but softer) Delusion Type: Bizarre, Paranoid (Improving) Suicidal Ideation: Yes (Denies today) Suicidal Plan: No (Denies) Suicidal Intention: No Homicidal Ideation: No Homicidal Plan: No Homicidal Intention: No Insight: Poor Judgment: Poor Assessment and Plan - Assessment (1) Brief psychotic disorder Code(s): F23 - Brief psychotic disorder Status: Acute - Plan Plan: Patient remains psychotic somewhat depressed. Continue to await consultation. Justification for Continued Inpatient Stay: At this time patient with decompensated placed on a lower level of care Discharge Planning: To be determined probable return home with family Request Healthcare Surrogate/Guardian Advocate?: Yes
--- NOTE | 2018-10-21 15:42 | P.PN ---
Subjective Interval history: Reconsult for poss seizure seeing during EEG: pt. seen and examined, denies any episodes, nothing has been observed per nursing. Patient has been mostly sleeping, comes out for meals but for the most part keeps to herself. Patient is awake alert and oriented x3, slow to respond. She remains guarded somewhat. Does not want MRI. No headache, no double vision. No fever. Neurologist has not seen yet. Physical Exam Vital signs: Vital Signs 10/20/18 16:43 10/21/18 06:00 Temperature 98.7 F 98 F Pulse Rate 65 68 Respiratory Rate 18 16 Blood Pressure 114/63 122/69 Pulse Oximetry 97 96 Narrative: GENERAL: WDWN middle aged female patient, sleeping awakes to voice, NAD. Calm. SKIN: Warm and dry. No obvious rash. +small cut on lower lip, does not appear infected. HEENT: Atraumatic. Normocephalic. Pupils equal and round. No scleral icterus. No injection or drainage. No nasal bleeding or discharge. Mucous membranes pink and moist. NECK: Trachea midline. CARDIOVASCULAR: Regular rate and rhythm. No murmur auscultated. RESPIRATORY: No accessory muscle use. Clear to auscultation. Breath sounds equal bilaterally. GASTROINTESTINAL: Abdomen soft, non-tender, nondistended. +BS. MUSCULOSKELETAL: Extremities without clubbing, cyanosis, or edema. No obvious deformities. NEUROLOGICAL: Awake, oriented x 3. Following commands, no focal deficits. Speech clear. Motor grossly within normal limits. Able to move all extremities spontaneously. PSYCHIATRIC: Flat affect, cooperative. Results - Labs CBC & Chem 7: 10/16/18 07:35 10/16/18 07:35 Assessment and Plan - Assessment (1) Brief psychotic disorder Code(s): F23 - Brief psychotic disorder Status: Acute - Plan 28-year-old female with a past medical history of polysubstance abuse including alcohol, benzodiazepines and marijuana admitted to inpatient psychiatric unit with acute psychosis. Hospitalist service is consulted to assist with medical management. Acute psychosis, likely due to polysubstance use/abuse Polysubstance abuse Hx of alcohol abuse UDS + benzodiazepines and marijuana Head CT shows no acute intracranial abnormality TSH 5.620 RPR nonreactive Thiamine level 63, will add Thiamine 100 mg PO BID -Management per psychiatric team -seizure precautions UTI Reviewed urinalysis from outside facility 10/14/18 + leukocytes, 4 white blood cells, moderate oxalate crystals, culture indicated patient treated with IV Ceftriaxone -repeat UA ordered - RN unable to collect urine specimen secondary to patients paranoia -started on po Cipro x 3 days Episodes of "sensation on one side of her body and locking up" concern for seizure activity 10/18, reconsult for poss seizure noted during EEG. Pt. noted with "word salad" , involuntary movement of left arm. 10/19, pt. had another episode today, this time became flushed, nonverbal, with involuntary movement of right arm. Lasted 30 seconds. 10/20, no episodes observed by staff. -thiamine 63 -seizure precautions -EEG report initially read as normal however addendum was done. Slowing noted on left hemisphere but no epileptic activity. -Reconsulted neurology, pending. -MRI brain has been ordered, pt. reluctant to have due to claustrophobia. Has Ativan ordered per psych -not inclined to start AED, defer to neuro -will have RN call neurology consult again. It was placed erroneously to neurosurgery. Intermittent abdominal pain patient denies any complaints of abdominal pain at this time. Suspect related to alcohol abuse -CMP unremarkable -Beta HCG less than 1 -monitor Vitamin B12 deficiency B12 low normal at 328 -given 1000mcg B12 IM x 1 -continue on B12 supplementation daily DVT prophylaxis -patient is ambulatory Will f/u on neurology recommendations. Code Status: Full code Discussed Condition With: RN, pt Discharge Planning: Per psych team
--- NOTE | 2018-10-21 18:59 | MB ---
cc: Gagandeep Ambriz MD, PhD DATE: 10/21/2018 REASON FOR CONSULTATION: Abnormal EEG, possible seizures. HISTORY OF PRESENT ILLNESS: The patient is a 48-year-old female who has a history of substance abuse, including alcohol, benzodiazepines, possible cocaine, methamphetamine. She is [place] Acted to the psychiatry floor. She has been having thought blocking and responding to internal stimuli with paranoid ideation felt to be due to psychosis. I questioned the patient as to whether or not she has had seizures in the past. She denies having seizures, but states that she sometimes has episodes where her right arm or sometimes the left arm will draw up involuntarily, usually triggered by episodes of stress when she is in conversation with people. She states that she has thought blocking. She has difficulty getting words out at times because she is afraid she might say the wrong thing. She then tends to withdraw, she states, and at that time she tends to have the drawing up of either the right arm or the left arm. She denies loss of consciousness. She states that if she takes the other arm and holds the arm that is drawing up it does seem to help. She is not sure whether or not the spells occur in the legs. She did have an electroencephalogram obtained on the 10/18/2018. The patient, during the EEG, had an episode where she turned her head to the right, lifted her head up slightly. The right arm was extended out and she began talking to someone who was not there, then laid her head down and closed her eyes. The EEG did not disclose any sign of epileptiform discharges at the time, although there was thought that there might have been some focal slowing of the left hemisphere. No definite seizure activity was identified on that tracing. She had a CT scan of the head performed which was normal. PHYSICAL EXAMINATION: On neurologic examination, she is alert. Her thought is definitely somewhat tangential, difficult to follow her conversation. She has some loose associations in her conversation. She states that at times she hears things and voices from people that are not there. She is able to follow commands well. Speech is fluent with no paraphasic errors. She is oriented. There is no neglect syndrome. Cranial nerves intact. Motor exam: No focal deficits identified. Gait is normal. IMPRESSION: The episodes she has with posturing and head deviation may be psychogenic in nature. The fact that the EEG during an episode did not show any definite epileptiform activity suggests that they are likely not seizures. However, I would recommend repeating an EEG. I would also like to get an MRI of the brain. If the episodes continue, could consider an empiric trial of an anticonvulsant medication such as Vimpat or Keppra. Thank you for asking us to see this nice patient. Gagandeep Ambriz MD, PhD YASH/flip , 05:16 PM , 05:25 PM
[2018-10-21] MEDS: Escitalopram 10 MG Tablet PO SCH (20:55)
[2018-10-21] MEDS: risperiDONE 1 MG ODT PO SCH (20:55)
[2018-10-22] MEDS: Ciprofloxacin 500 MG Tablet PO SCH ×2 (00:53→13:13)
--- NOTE | 2018-10-22 14:19 | P.PNPSY ---
Subjective Remarks: Reviewed electronic medical records and discussed case with staff. Follow-up was conducted in the patient's room with CORY Valdez present. Her nurse reports that she has been quiet but compliant with her medication. She has had no behavioral disturbances. Patient states she feels "a little better". She goes on to a long tangent about her current events in her life. She does report she was hearing voices from the TV and states that "perhaps it could have been from drugs". She states she did not sleep well last night but she has been eating okay. Throughout the interview she has a flat affect and is soft spoken. She reports that her auditory hallucinations have become more intermittent. However she is unable to relate exactly with say becomes a little bit bizarre and illogical stating that she had a bad dream last night. When asked to elaborate she states "I think I supposed to be in a race". Mental Status Examination Appearance: Appropriate Consciousness: Alert, Highly distractible (More focused) Orientation: Person, Place, Date/Time, Situation Motor Activity: Normal gait Speech: Hesitant (Improving), Slow (Improving) Language: Adequate Fund of Knowledge: Inadequate (Improving) Attention and Concentration: Easily distracted (Improving) Memory: Impaired Mood: Sad Affect: Other (Slight decreased range and intensity) Thought Process & Associations: Disorganized (Improving) Thought Content: Bizarre thinking (Improving), Hallucinations (Slightly improved ) Hallucination Type: Auditory (Persistent but softer) Delusion Type: Bizarre, Paranoid (Improving) Suicidal Ideation: Yes (Denies today) Suicidal Plan: No (Denies) Suicidal Intention: No Homicidal Ideation: No Homicidal Plan: No Homicidal Intention: No Insight: Poor Judgment: Poor Assessment and Plan - Assessment (1) Brief psychotic disorder Code(s): F23 - Brief psychotic disorder Status: Acute - Plan Plan: Patient will be reevaluated by the attending psychiatrist. Continue with current treatment plan. Justification for Continued Inpatient Stay: Moving this patient to a less restrictive environment would likely result in decompensation. Request Healthcare Surrogate/Guardian Advocate?: Yes
--- NOTE | 2018-10-22 17:12 | P.PN ---
Subjective Interval history: Reconsult for poss seizure seeing during EEG: pt. seen and examined,sitting in dining room. No seizure activity observed. Was seen by Dr. Ambriz, he recommended brain MRI and repeat EEG, pt. declining. No acute changes overnight. Physical Exam Vital signs: Vital Signs 10/21/18 18:06 10/22/18 06:00 Temperature 98.4 F 98 F Pulse Rate 65 69 Respiratory Rate 18 17 Blood Pressure 140/61 114/56 L Pulse Oximetry 96 97 Narrative: GENERAL: WDWN middle aged female patient, sleeping awakes to voice, NAD. Calm. SKIN: Warm and dry. No obvious rash. +small cut on lower lip, does not appear infected. HEENT: Atraumatic. Normocephalic. Pupils equal and round. No scleral icterus. No injection or drainage. No nasal bleeding or discharge. Mucous membranes pink and moist. NECK: Trachea midline. CARDIOVASCULAR: Regular rate and rhythm. No murmur auscultated. RESPIRATORY: No accessory muscle use. Clear to auscultation. Breath sounds equal bilaterally. GASTROINTESTINAL: Abdomen soft, non-tender, nondistended. +BS. MUSCULOSKELETAL: Extremities without clubbing, cyanosis, or edema. No obvious deformities. NEUROLOGICAL: Awake, oriented x 3. Following commands, no focal deficits. Speech clear. Motor grossly within normal limits. Able to move all extremities spontaneously. PSYCHIATRIC: Flat affect, cooperative. Results - Labs CBC & Chem 7: 10/16/18 07:35 10/16/18 07:35 Assessment and Plan - Assessment (1) Brief psychotic disorder Code(s): F23 - Brief psychotic disorder Status: Acute - Plan 28-year-old female with a past medical history of polysubstance abuse including alcohol, benzodiazepines and marijuana admitted to inpatient psychiatric unit with acute psychosis. Hospitalist service is consulted to assist with medical management. Acute psychosis, likely due to polysubstance use/abuse Polysubstance abuse Hx of alcohol abuse UDS + benzodiazepines and marijuana Head CT shows no acute intracranial abnormality TSH 5.620 RPR nonreactive Thiamine level 63, added Thiamine 100 mg PO BID -Management per psychiatric team -seizure precautions UTI Reviewed urinalysis from outside facility 10/14/18 + leukocytes, 4 white blood cells, moderate oxalate crystals, culture indicated patient treated with IV Ceftriaxone -repeat UA ordered - RN unable to collect urine specimen secondary to patients paranoia -started on po Cipro x 3 days -denies urinary symptoms. Episodes of "sensation on one side of her body and locking up" concern for seizure activity 10/18, reconsult for poss seizure noted during EEG. Pt. noted with "word salad" , involuntary movement of left arm. 10/19, pt. had another episode today, this time became flushed, nonverbal, with involuntary movement of right arm. Lasted 30 seconds. 10/20, no episodes observed by staff. -thiamine 63 -seizure precautions -EEG report initially read as normal however addendum was done. Slowing noted on left hemisphere but no epileptic activity. -MRI brain has been ordered, pt. reluctant to have due to claustrophobia. Has Ativan ordered per psych -not inclined to start AED, defer to neuro -Appreciate Dr. Ambriz's input, likely no seizure per EEG. Poss psychogenic in nature. Recommended repeat EEG and MRI brain. Pt. refusing. -continue to monitor, enc. pt to complete work up. Intermittent abdominal pain patient denies any complaints of abdominal pain at this time. Suspect related to alcohol abuse -CMP unremarkable -Beta HCG less than 1 -monitor Vitamin B12 deficiency B12 low normal at 328 -given 1000mcg B12 IM x 1 -continue on B12 supplementation daily DVT prophylaxis -patient is ambulatory Pt. refusing EEG and MRI brain. No seizure like activity observed. Will sign off for now, reconsult if needed. Code Status: Full code Discussed Condition With: RN, pt Discharge Planning: Per psych team
[2018-10-22] MEDS: Escitalopram 10 MG Tablet PO SCH (20:09)
[2018-10-22] MEDS: risperiDONE 1 MG ODT PO SCH (20:09)
[2018-10-23] MEDS: Ciprofloxacin 500 MG Tablet PO SCH ×3 (01:00→20:15)
--- NOTE | 2018-10-23 10:00 | P.PNPSY ---
Subjective Remarks: Patient seen and examined with nurse, Dee Dee, in weekend coverage for Dr. Dolan. Chart reviewed. Case discussed with nursing staff who reports that patient is somewhat clearer than the previous weekend. She refused her MRI of the brain. Nursing is also requesting that Cipro be changed to BID from q12hr. on my examination today, the patient presents as somewhat delayed. She initially denies audiovisual hallucinations and says that she is hearing her peers tell her to do things or to do the opposite. She denies any command auditory hallucinations to hurt herself or others. She denies any suicidal or homicidal ideation. She says that she has been declining the MRI of the brain secondary to claustrophobia but refuses any pharmacologic management for this issue to help facilitate MRI. She denies side effects from medications besides some mild sedation. No physical complaints. Vital Signs Temp Pulse Resp BP Pulse Ox 10/23/18 06:00 98 F 67 16 94/50 L 97 10/22/18 18:00 98 F 75 17 120/63 97 Labs reviewed. Review of Systems All other systems reviewed negative except as stated in HPI (Limitation: Psychosis) Mental Status Examination Appearance: Appropriate Consciousness: Alert Orientation: Person, Place (At least) Motor Activity: Other (No motor abnormalities noted) Speech: Hesitant, Slow Language: Adequate Attention and Concentration: Easily distracted Memory: Impaired (Psychosis interferes) Mood: Other (Calm) Affect: Flat Thought Process & Associations: Circumstantial Thought Content: Bizarre thinking, Hallucinations Hallucination Type: Auditory Delusion Type: Paranoid Suicidal Ideation: No Suicidal Plan: No Suicidal Intention: No Homicidal Ideation: No Homicidal Plan: No Homicidal Intention: No Insight: Poor Judgment: Poor Assessment and Plan - Assessment (1) Brief psychotic disorder Code(s): F23 - Brief psychotic disorder Status: Acute - Plan Plan: Titrate Risperdal to 1.5 mg at bedtime to target residual psychotic symptoms. Continue other psychotropic medications as ordered. Hospitalist input noted and appreciated. Continue to encourage compliance with MRI of the brain. Adjust Cipro dosing to BID. Continue to monitor on the inpatient unit. Continue other care as ordered. Justification for Continued Inpatient Stay: Medication changes. Impairment in reality construction. High risk for decompensation in less restrictive environment. Discharge Planning: Per Dr. Dolan Request Healthcare Surrogate/Guardian Advocate?: Yes
[2018-10-23] MEDS: risperiDONE 1 MG ODT PO SCH (20:15)
[2018-10-23] MEDS: Escitalopram 10 MG Tablet PO SCH (20:15)
[2018-10-24] MEDS: Ciprofloxacin 500 MG Tablet PO SCH ×2 (08:35→20:40)
--- NOTE | 2018-10-24 10:23 | P.TTN ---
- Patient Problems Problems: 1. Discharge planning 2. Medication compliance 3. Knowledge deficit 4. Lack of coping skills - Progress Toward Goals Provider Present: Dr. Samantha Dolan (Patient is improving, Dr. Dolan will assess today to determine if the patient needs to remain for further stabilization.) Provider Input: 10/17/2018; per psychiatrist he will decide medication adjustments or change after staffing with RN and reviewing weekend Nurse(s) Present: RN Nurse Input: 10/17/2018; Per RN patient is very psychotic, delusional and paranoid, requires coaching and prompting with daily actives and medications. Psychiatric Counselors Present: Jhonny Bernardo Jr., [facility] (Patient is vague regarding discharge plan page. Patient reports she can return to her ex- 's home, she could live with her boyfriend, or she may get a place of her own. Counselor will follow), Johanna Hopkins [facility] Psychiatric Therapist Input: 10/17/2018; assign counselor will work with treatment team and patient with appropriate dc placement when patient is stable. Group Spec/RT/OT/HARMON Present: EDEN Forde (Patient does not attend groups at this time.), EDEN Ryan Group Spec/RT/OT/HARMON Input: 10/17/2018; patient lacks insight to participate with activities - Documentation Teaching Recipient: Patient
--- NOTE | 2018-10-24 14:10 | P.PNPSY ---
Subjective Remarks: Patient is seen in her room with nurse Dee Dee, chart reviewed, patient compliant medicine. Patient today is alert oriented calm cooperative pleasant with good eye contact her posture is improved her overall gaze is steady she is reactive with occasional somewhat smile she is being more cooperative did have repeat EEG done just earlier today and she is scheduled for an MRI later today. I will order 2 mg Ativan p.o. 30 minutes before MRI. I also talked with patient's son who gave permission for the Ativan he feels also his mother is doing much better. For now continue treatment hopefully discharge room 1-2 days with neurology is okay Review of Systems All other systems reviewed negative except as stated in HPI Mental Status Examination Appearance: Appropriate Consciousness: Alert Orientation: Person, Place (At least), Date/Time, Situation Motor Activity: Normal gait Speech: Hesitant (Improved), Slow (Improved) Language: Adequate Fund of Knowledge: Inadequate (Improving) Attention and Concentration: Easily distracted (Improved) Memory: Unremarkable (Improved) Mood: Other (Euthymic to mildly dysphoric) Affect: Other (Slight decreased range and intensity) Thought Process & Associations: Circumstantial (Improved) Thought Content: Bizarre thinking (Improved), Hallucinations (Denies today) Hallucination Type: Auditory (Denies today) Delusion Type: Paranoid Suicidal Ideation: No Suicidal Plan: No Suicidal Intention: No Homicidal Ideation: No Homicidal Plan: No Homicidal Intention: No Insight: Fair Judgment: Adequate (Fair) Assessment and Plan - Assessment (1) Brief psychotic disorder Code(s): F23 - Brief psychotic disorder Status: Acute - Plan Plan: Patient's psychosis appears to be resolving her mood is improving we continue to finish with her investigation of the seizure disorder question compliant medications. Justification for Continued Inpatient Stay: At this time patient with decompensated placed in a lower level of care Request Healthcare Surrogate/Guardian Advocate?: Yes
[2018-10-24] MEDS ORDERED: Gadobutrol PF 7.5 MMOL/7.5 ML Vial (for RAD) IV.SIG ONE (15:27)
--- NOTE | 2018-10-24 15:36 | MR ---
EXAM DATE: 10/24/2018 3:28 PM EST AGE/SEX: 48 years / Female INDICATIONS: Seizures. Abnormal EEG. CLINICAL DATA: This is the patient's subsequent encounter. Patient reports that signs and symptoms h ave been present for 1 week and indicates a pain score of 0/10. MEDICAL/SURGICAL HISTORY: None. . D&C. COMPARISON: No prior exams available for comparison. TECHNIQUE: Multiplanar, multisequence examination of the brain was performed without and with 6.5 ml Gadavist (gadobutrol) contrast as a single exam dose. FINDINGS: Cerebrum: The ventricles are normal for age. No evidence of midline shift, mass lesion, hemorrhage or acute infarction. No extraaxial fluid collections are seen. The pituitary gland and suprasellar cistern are normal in configuration. There is mild asymmetry of the temporal lobes, left larger than the right. White Matter: No significant signal abnormalities are seen in the white matter. Posterior Fossa: The cerebellum and brainstem are intact. The 4th ventricle is midline. The cerebel lopontine angle is unremarkable. The cerebellar tonsils are normal in position. Diffusion Imaging: No focal areas of restricted diffusion are seen. No evidence of acute infarction . Extracranial: The visualized portions of the orbits and paranasal sinuses are unremarkable. Post Contrast: No abnormal areas of parenchymal or dural enhancement. No evidence of blood-brain ba rrier breakdown. CONCLUSION: 1. Mild asymmetry of the temporal lobes otherwise negative. Correlation with EEG findings is suggest ed. Electronically signed by: Imer Mccarthy MD Board Certified Radiologist 10/24/2018 3:34 PM EST
[2018-10-24] MEDS: risperiDONE 1 MG ODT PO SCH (20:38)
[2018-10-24] MEDS: Escitalopram 10 MG Tablet PO SCH (20:40)
--- NOTE | 2018-10-24 21:40 | MG ---
cc: Morteza Haskins MD ELECTROENCEPHALOGRAM RECORD NUMBER: [id number] DESCRIPTION: A 7-8 Hz posterior rhythm, 20-50 microvolts. Low-amplitude beta in the frontal channels. Good anterior to posterior gradient but generalized slowing. Good EEG variability and reactivity. Occasional bursts of slow theta suggestive of drowsy state. Single-lead EKG showing sinus rhythm. There is a tiny sharp transient in appearance during post hyperventilation. INTERPRETATION: Mild nonspecific changes, otherwise stable awake and drowsy electroencephalogram. Clinical correlation. MD TY Monge/mary , 08:57 PM , 09:03 PM
[2018-10-25] MEDS: Ciprofloxacin 500 MG Tablet PO SCH ×2 (08:26→20:23)
--- NOTE | 2018-10-25 11:19 | P.PNPSY ---
Subjective Remarks: Patient seen and mckeon with floor staff, patient alert oriented calm and cooperative states she slept well last night is feeling better. She denies suicidality or homicidality voices or visions. EEG results reviewed no significant problems mentioned there, MRI reviewed no significant findings except slight asymmetry left versus right now continue treatment Review of Systems All other systems reviewed negative except as stated in HPI Mental Status Examination Appearance: Appropriate Consciousness: Alert Orientation: Person, Place (At least), Date/Time, Situation Motor Activity: Normal gait Speech: Hesitant (Improved), Slow (Improved) Language: Adequate Fund of Knowledge: Inadequate (Improving) Attention and Concentration: Easily distracted (Improved) Memory: Unremarkable (Improved) Mood: Other (Euthymic to mildly dysphoric) Affect: Other (Slight decreased range and intensity) Thought Process & Associations: Circumstantial (Improved) Thought Content: Hallucinations (Denies today) Hallucination Type: Auditory (Denies today) Delusion Type: Paranoid (Markedly decreased) Suicidal Ideation: No Suicidal Plan: No Suicidal Intention: No Homicidal Ideation: No Homicidal Plan: No Homicidal Intention: No Insight: Fair Judgment: Adequate (Fair) Assessment and Plan - Assessment (1) Brief psychotic disorder Code(s): F23 - Brief psychotic disorder Status: Acute - Plan Plan: Patient improved today psychosis is resolving results of the EEG and MRI also reviewed. For now continue treatment Justification for Continued Inpatient Stay: At this time patient with decompensated placed in a lower level of care Discharge Planning: Probable return home Request Healthcare Surrogate/Guardian Advocate?: Yes
--- NOTE | 2018-10-25 12:55 | P.DIET ---
Nutritional Evaluation Type of nutrition evaluation: initial Nutrition screening: [facility] [place] [facility] [place]: 10/24/18 [facility] [place] Poor PO Intake-pt refusing most meals and eating small percentage of them please assess Subjective Oral Diet Tolerance Assessment Indicates: Poor intake due to pain Subjective Comments: Pt visited in the day room during lunch today. Pt declines nutritional supplements at this time. Pt states that she does not need nutritional help. Discussed w/RN Dee Dee who reports pt is now being directed to the day room for her meals vs staying in her room, to encourage increased po intake. Objective - Diagnosis hallucinations, rod - Objective % IBW: 110 Body Weight Used for Calculations: Actual (65.6 kg) Energy Needs - Lower Range (kCal/kg): 25 Energy Needs - Upper Range (kCal/kg): 30 Lower Limit kCal/kg (kCals): 1,640 Upper Limit kCal/kg (kCals): 1,968 Lower Limit Protein Factor (Grams per Kg): 1.1 Upper Limit Protein Factor (Grams per Kg): 1.4 Lower Protein Needs (Protein): 72 Upper Protein Needs (Protein): 92 Dietitian Reviewed in Medical Record: Current diet, Curent medications, Intake & Output, Labs, Medical history Diet Order: Regular Oral Diet Intake Amount: Fair 50-75% Objective Comments: PMH includes: Alcohol Abuse, Polysubstance Abuse Meds include: thiamine, B12, Lexapro, Atarax, Risperidone Assessment Assessment: Pt is at nutritional risk r/t poor po intake. Noted pt is now being directed by Nursing to the dayroom for her meals in an effort to promote increased po intake. Pt provided a few food preferences. Pt declines oral nutritional supplements at this time. Dietitian will monitor for adequate po intake. Recommendations: 1. Per Nursing pt will eat meals in the day room vs her room, in an effort to promote increased po intake 2. Pt provided a few food preferences 3. Pt declines oral nutritional supplements at this time 4. Dietitian will monitor for adequate po intake Dietitian to Monitor: Lab values, Intake & Output, Weight change, PO Intake, Medical course
[2018-10-25] MEDS: Escitalopram 10 MG Tablet PO SCH (20:23)
[2018-10-25] MEDS: risperiDONE 1 MG ODT PO SCH (20:23)
[2018-10-26 05:45] VITALS: O2SAT 97
[2018-10-26] MEDS: Ciprofloxacin 500 MG Tablet PO SCH ×2 (09:07→21:00)
--- NOTE | 2018-10-26 10:10 | P.PNPSY ---
Subjective Remarks: Patient is seen in day room with RN, chart reviewed, patient compliant medication. Patient calm cooperative and pleasant with me he does acknowledge some persistent mild auditory hallucinations. Though they are not threatening. I do not see any further neurology notes today. Patient does denies suicidality or homicidality. We will increase Risperdal from 1.5mg to 2 mg at at bedtime. Patient is scheduled for [place] tomorrow. At this time patient is improved no longer meets Jordan act criteria we will lift Jordan act allow patient to sign voluntary Review of Systems All other systems reviewed negative except as stated in HPI Mental Status Examination Appearance: Appropriate Consciousness: Alert Orientation: Person, Place (At least), Date/Time, Situation Motor Activity: Normal gait Speech: Hesitant (Improved), Slow (Improved) Language: Adequate Fund of Knowledge: Inadequate (Improving) Attention and Concentration: Easily distracted (Improved) Memory: Unremarkable (Improved) Mood: Other (Euthymic to mildly dysphoric) Affect: Other (Slight decreased range and intensity) Thought Process & Associations: Circumstantial (Improved) Thought Content: Hallucinations (Denies today) Hallucination Type: Auditory (Denies today) Delusion Type: Paranoid (Markedly decreased) Suicidal Ideation: No Suicidal Plan: No Suicidal Intention: No Homicidal Ideation: No Homicidal Plan: No Homicidal Intention: No Insight: Fair Judgment: Adequate (Fair) Assessment and Plan - Assessment (1) Brief psychotic disorder Code(s): F23 - Brief psychotic disorder Status: Acute - Plan Plan: Patient continues to improve. Will lift Jordan act patient may sign voluntary at this time Justification for Continued Inpatient Stay: At this time patient with decompensated placed on a lower level of care Discharge Planning: Probable return home with family Request Healthcare Surrogate/Guardian Advocate?: Yes
--- NOTE | 2018-10-26 15:39 | P.TTN ---
- Patient Problems Problems: 1. Discharge planning 2. Medication compliance 3. Knowledge deficit 4. Lack of coping skills - Progress Toward Goals Provider Present: Dr. Samantha Dolan (Patient is improving, Dr. Dolan will assess today to determine if the patient needs to remain for further stabilization.) Provider Input: 10/26/2018: Paranoid, Remain for further Stabilization. 2017; per psychiatrist he will decide medication adjustments or change after staffing with RN and reviewing weekend Nurse(s) Present: Courtney RAY Nurse Input: 10/26/18: Appropriate with Staff, treatment Cooperative, Med Compliant, Brighter Mood. 10/17/2018; Per RN patient is very psychotic, delusional and paranoid, requires coaching and prompting with daily actives and medications. Psychiatric Counselors Present: ASH ArreolaTamra, Johanna Hopkins, [facility], Other (Janie ) Psychiatric Therapist Input: 10/17/2018; assign counselor will work with treatment team and patient with appropriate dc placement when patient is stable. Group Spec/RT/OT/HARMON Present: SON Izquierdo Group Spec/RT/OT/HARMON Input: 10/26/2018: Pt has been attending the Group activities with good participation. Pt is more social with peers. 10/17/2018; patient lacks insight to participate with activities - Discharge Plan Other (Patient will return home with .) 10/26/18: Patient will return home with when stable. - Documentation Teaching Recipient: Patient
[2018-10-26] MEDS ORDERED: risperiDONE 2 MG ODT PO SCH (21:00)
[2018-10-26] MEDS: Escitalopram 10 MG Tablet PO SCH (21:00)
[2018-10-27 06:44] VITALS: BP 117/56; PULSE 64; RESP 18; TEMP 97.7
[2018-10-27] MEDS: Ciprofloxacin 500 MG Tablet PO SCH (08:43)
--- NOTE | 2018-10-27 11:18 | P.DSPSY ---
Psychiatry Discharge Summary Inpatient Psychiatric care?: Yes Advance Directives: No Mental Health Advance Directive: No Health Care Proxy: No - Admission Admission Date: October 15, 2018 04:42 - Admission Diagnosis (1) Brief psychotic disorder Code(s): F23 - Brief psychotic disorder Brief History: Patient is a 48-year-old white female who comes to under Jordan act Sieben illegible signature from [facility] dated 10/14/2018 and 9 PM stating auditory hallucinations manic behavior history of drug use. Patient is history in the emergency department urine tox positive for benzodiazepines and marijuana. It appears patient may have had a UTI diagnosed and is treated with Rocephin we will recheck her urine here patient transported here after being medically cleared. Patient seen in the exam room with nurse Dee Dee patient's ex- whom she is living with and her 23-year-old son. Patient acknowledges auditory hallucinations of a command nature patient is showing marked significant thought blocking significantly delayed responses very distracted responses are very brief and whispered. She is is able to acknowledge that the voices are of a command nature telling her not to respond to me. She is vague about suicidality she is vague about homicidality. There is a vague history of past mental health issues a number of years ago though she denies any prior inpatient psychiatric hospitalization. It appears there is been some history of alcohol abuse in the past and perhaps some experimentation with drugs including cocaine and possibly methamphetamine. Patient is vague about any prior physical or sexual abuse. She denies mental health issues with her family of origin. The. She has a college degree. I am not certain about her work history. At this time patient meets criteria for involuntary psychiatric hospitalization of the Jordan act on the first opinion request second opinion. A few she does not have capacity thus I will ask for healthcare surrogate and guardian advocate. Patient's son is willing to be a healthcare surrogate. We will start patient on Lexapro 10 mg daily and Risperdal 0.5 mg twice daily. Health has been fairly short stay. Tobacco Use In Past 30 Days: No How Often Do You Have a Drink Containing Alcohol: Never Hospital Course: Patient's hospital course was uneventful, her initial isolation psychosis auditory hallucinations with vague suicidality gradually resolved with the milieu and with medication. We did have conversations with patient's ex- with whom she is not living again and patient's adult son. It appears patient did have an episode with a younger man. There appears to been alcohol and marijuana and perhaps other drug use with this. They question with a patient may have been given some type of a bike designer drug that is because of the psychotic break. In any event patient is markedly improved she is compliant with his medication she is alert oriented, cooperative there is some vague voices persist and but they continue to diminish. She does denies suicidality or homicidality. She is medical management to continue being compliant with medication to follow-up psychiatric services in the community. She also does have a counselor who has done EMDR with her. That she will continue with her medication psychiatric follow-up. Also would recommend follow-up of the [facility] outpatient support groups - Discharge Discharge Date: 10/27/18 - Discharge Diagnosis (1) Brief psychotic disorder Code(s): F23 - Brief psychotic disorder Status: Acute Discharge Disposition: Home - Discharge Instructions Discharge Diet: Regular Diet Activities You Can Perform: Regular- No Restrictions - Discharge Time > 30 minutes Mental Status Examination Appearance: Appropriate Consciousness: Alert Orientation: Person, Place (At least), Date/Time, Situation Motor Activity: Normal gait Speech: Hesitant (Improved), Slow (Improved) Language: Adequate Fund of Knowledge: Inadequate (Improving) Attention and Concentration: Easily distracted (Improved) Memory: Unremarkable (Improved) Mood: Other (Euthymic to mildly dysphoric) Affect: Other (Slight decreased range and intensity) Thought Process & Associations: Circumstantial (Improved) Thought Content: Hallucinations (Denies today) Hallucination Type: Auditory (Denies today) Delusion Type: Paranoid (Markedly decreased) Suicidal Ideation: No Suicidal Plan: No Suicidal Intention: No Homicidal Ideation: No Homicidal Plan: No Homicidal Intention: No Insight: Fair Judgment: Adequate (Fair) Discharge/Advance Care Plan - Results Vital Signs: Last Vital Signs Temp 97.7 F 10/27/18 06:42 Pulse 64 10/27/18 06:42 Resp 18 10/27/18 06:42 BP 117/56 L 10/27/18 06:42 Pulse Ox 97 10/27/18 06:42 Lab Results: Laboratory Results Urine Culture Comments Culture not ind 10/18/18 05:45 Summary of Procedures: None done Imaging: ITS Impressions Head CT 10/16/18 00:00 CONCLUSION: No acute intracranial abnormality is identified. . Head MRI 10/24/18 00:00 CONCLUSION: 1. Mild asymmetry of the temporal lobes otherwise negative. Correlation with EEG findings is suggested. Pending Results: None - Medications Number of antipsychotic medications at discharge: 1 - Discharge Care Plan Goals to Promote Your Health: * To prevent worsening of your condition and complications * To maintain your health at the optimal level Directions to Meet Your Goals: Take your medications as prescribed Follow your dietary instruction Follow activity as directed Keep your appointments as scheduled Take your immunizations and boosters as scheduled If your symptoms worsen call your PCP, if no PCP go to Urgent Care Center or Emergency Room For 31/05 questions related to your inpatient stay or results of tests pending at discharge, please contact Dr. Danny Dolan MD at Smoking is Dangerous to Your Health. Avoid second hand smoking
== END 2018-10-27 15:57 | disposition home or self-care (01) ==
LOC: H270 04:42 → H260 10-26 16:23
PROVIDERS: ADMIT Psychiatry & Neurology Psychiatry; ATTEND Psychiatry & Neurology Psychiatry